=== PATIENT | female | born 1975 | race Caucasian/White ===

== ENCOUNTER 2021-09-11 08:01 | Observation (INO) ==
[2021-09-11 08:46] LABS: Basophils # 0.1 K/mcL (0.0-0.2); Basophils % 0.3 %; Eosinophils # 0.3 K/mcL (0.0-0.6); Eosinophils % 1.5 %; Hematocrit 49.1 % (35.3-44.9); Hemoglobin 16.5 g/dL (11.5-15.4); Immature Granulocytes % 0.6 % (0-4); Lymphocytes % 20.8 %; Mean Corpuscular HGB Conc 33.6 g/dL (31.6-35.5); Mean Corpuscular Hemoglobin 29.6 pg (28.0-33.3); Mean Corpuscular Volume 88.2 fL (83.0-100.0); Monocytes # 1.5 K/mcL (0.0-1.3); Monocytes % 7.9 %; Neutrophils # 13.3 K/mcL (1.6-8.9); Platelet Count 352 K/mcL (140-400); Red Blood Count 5.57 M/mcL (3.82-4.97); Segmented Neutrophils % 68.9 %; White Blood Count 19.3 K/mcL (4.3-11.1)
[2021-09-11 09:07] LABS: BUN/Creatinine Ratio 17 (6-26); Blood Urea Nitrogen 11 mg/dL (6-20); Calcium 9.4 mg/dL (8.6-10.3); Carbon Dioxide 24 mEq/L (23-29); Chloride 104 mEq/L (98-107); Glucose 111 mg/dL (70-105); Osmolality,Calculated 280 (280-300); Sodium 135 mEq/L (136-145); eGFR For African Americans > 60 (> 60); eGFR For Non-African Americans > 60 (> 60)
[2021-09-11 09:08] LABS: Troponin I < 0.03 ng/mL (< 0.04)
[2021-09-11 09:56] LABS: Alanine Aminotransferase 15 Units/L (7-52); Albumin 4.3 g/dL (3.5-5.7); Albumin/Globulin Ratio 1.7 (1.1-2.2); Alkaline Phosphatase 71 Units/L (34-104); Aspartate Amino Transferase 18 Units/L (13-39); Bilirubin,Direct 0.1 mg/dL (0.0-0.2); Bilirubin,Indirect 0.3 mg/dL (0.0-1.0); Bilirubin,Total 0.4 mg/dL (0.3-1.0); Globulin 2.5 g/dL (2.4-3.5); Total Protein 6.8 g/dL (6.4-8.9)
[2021-09-11] MEDS ORDERED: Aspirin 325 MG TABLET PO ONE (10:09)
[2021-09-11 10:32] LABS: INR 0.9
[2021-09-11 10:34] LABS: Activated Partial Thrombo Time 31.5 Seconds (26.0-36.0)
[2021-09-11] MEDS ORDERED: Naloxone 0.4 MG/ML INJ IVP PRN (12:37)
[2021-09-11] MEDS ORDERED: Ondansetron 4 MG/2 ML VIAL IVP PRN (12:37)
[2021-09-11] MEDS ORDERED: *HR* Heparin 5,000 UNIT/ML VIAL IVP ONE (13:42)
[2021-09-11] MEDS ORDERED: *HR* Heparin 5,000 UNIT/ML VIAL IVP PRN ×2 (13:42)
[2021-09-11] MEDS ORDERED: Perflutren Lipid Microsphere 1.3 ML in 0.9 % Sodium Chloride 8.7 ML IVP PRN (13:51)
[2021-09-11] MEDS: Heparin 25,000UNIT/250ML 1/2NS 25,000 UNIT/250 ML IV.SOLN IVC SCH ×2 (13:56→21:50)
[2021-09-11 14:08] LABS: Bilirubin,Urine Negative (Negative); Blood,Urine Negative (Negative); Clarity,Urine Clear (Clear); Color,Urine Colorless (Yellow); Glucose,Urine (UA) Normal (Normal); Ketones,Urine Negative (Negative); Leukocyte Esterase,Urine Negative (Negative); Nitrite,Urine Negative (Negative); PH,Urine 6.5 pH Units (5.0-8.0); Protein,Urine Negative (Neg-Trace); Specific Gravity,Urine 1.006 (1.010-1.025); Urobilinogen,Urine Normal (Normal)
[2021-09-11 14:13] LABS: Hematocrit 47.5 % (35.3-44.9); Mean Corpuscular HGB Conc 33.7 g/dL (31.6-35.5); Mean Corpuscular Hemoglobin 29.7 pg (28.0-33.3); Mean Corpuscular Volume 88.3 fL (83.0-100.0); Mean Platelet Volume 10.2 fL (9.4-12.4); Platelet Count 344 K/mcL (140-400); Red Blood Count 5.38 M/mcL (3.82-4.97); White Blood Count 21.7 K/mcL (4.3-11.1)
[2021-09-11 14:18] LABS: Prothrombin Time 10.9 Seconds (9.4-12.1)
[2021-09-11] MEDS: Gabapentin 300 MG CAPSULE PO SCH ×2 (14:20→20:26)
[2021-09-11 14:21] LABS: Heparin anti-factor XA UFH < 0.04 IU/mL (0.30-0.70)
[2021-09-11] MEDS ORDERED: 0.9 % Sodium Chloride 2,000 ML ONE (14:39)
[2021-09-11] MEDS ORDERED: *HR* Heparin 10,000 UNIT/10 ML VIAL ONE (14:40)
[2021-09-11] MEDS ORDERED: Heparin 1,000 UNITS/500 mL 500 ML ONE (14:40)
[2021-09-11] MEDS ORDERED: Nitroglycerin 1,000 MCG/5 ML VIAL IV ONE (14:40)
[2021-09-11] MEDS ORDERED: ISOVUE-370 200 ML INFUS..BTL ONE (14:40)
[2021-09-11] MEDS ORDERED: 0.9 % Sodium Chloride 1,000 ML IVC SCH (14:45)
[2021-09-11] MEDS ORDERED: *HR* Midazolam HCl 2 MG/2 ML VIAL ONE (14:53)
[2021-09-11] MEDS ORDERED: *HR* FentaNYL (PF) 100 MCG/2 ML VIAL ONE ×2 (14:53→15:54)
[2021-09-11] MEDS ORDERED: Tirofiban 12.5 MG/250ML 12.5 MG/250 ML BAG ONE (15:50)
[2021-09-11] MEDS: methocarbamoL 750 MG TABLET PO SCH ×2 (18:26→20:26)
[2021-09-12 00:44] LABS: Basophils % 0.3 %; Eosinophils # 0.1 K/mcL (0.0-0.6); Eosinophils % 0.9 %; Hemoglobin 14.8 g/dL (11.5-15.4); Immature Granulocytes % 0.5 % (0-4); Lymphocytes # 4.5 K/mcL (0.6-4.6); Lymphocytes % 30.1 %; Mean Corpuscular HGB Conc 34.4 g/dL (31.6-35.5); Mean Corpuscular Hemoglobin 30.7 pg (28.0-33.3); Mean Corpuscular Volume 89.2 fL (83.0-100.0); Mean Platelet Volume 10.3 fL (9.4-12.4); Monocytes # 1.2 K/mcL (0.0-1.3); Monocytes % 7.9 %; Platelet Count 322 K/mcL (140-400); Red Blood Count 4.82 M/mcL (3.82-4.97); Red Cell Distribution Width 13.1 % (11.5-14.5); Segmented Neutrophils % 60.3 %; White Blood Count 14.9 K/mcL (4.3-11.1)
[2021-09-12 01:04] LABS: BUN/Creatinine Ratio 25 (6-26); Blood Urea Nitrogen 14 mg/dL (6-20); Calcium 8.9 mg/dL (8.6-10.3); Carbon Dioxide 22 mEq/L (23-29); Chloride 106 mEq/L (98-107); Glucose 140 mg/dL (70-105); Osmolality,Calculated 283 (280-300); Potassium 3.8 mEq/L (3.5-5.1); Sodium 135 mEq/L (136-145); eGFR For African Americans > 60 (> 60); eGFR For Non-African Americans > 60 (> 60)
[2021-09-12 01:10] LABS: Troponin I 6.62 ng/mL (< 0.04)
[2021-09-12 02:10] LABS: Platelet Estimate Normal (Normal); Reactive Lymphocytes Present (Not Present)
[2021-09-12] MEDS: Gabapentin 300 MG CAPSULE PO SCH (07:52)
[2021-09-12] MEDS ORDERED: lisinopriL 20 MG TABLET PO SCH (09:00)
[2021-09-12] MEDS ORDERED: Aspirin 81 MG TAB.CHEW PO SCH ×2 (09:00)
[2021-09-12] MEDS ORDERED: Loratadine 10 MG TABLET PO SCH (09:00)
[2021-09-12 11:03] VITALS: BP 101/68; PULSE 77; TEMP 97.9; O2SAT 92
== END 2021-09-12 15:08 | disposition home or self-care (01) ==
LOC: EMEROOARM 08:01 → 2ANU 08:01 → SUATTDRO 15:14
PROVIDERS: ADMIT Family Medicine; ATTEND Internal Medicine